=== PATIENT | female | born 1985 | race Caucasian/White ===

== ENCOUNTER 2016-12-02 14:38 | Inpatient (IN) | payer OTHER ==
[~2016-12-02] VITALS: Ht 165.1 cm; Wt 72.7 kg
[2016-12-02 14:45] VITALS: BP 126/83
[2016-12-02] MEDS ORDERED: PREN1TAB60 PO (14:54)
[2016-12-02] MEDS: D5%-LACTATED RINGERS 1,000 ML IV SCH ×2 (15:23→23:23)
[2016-12-02] MEDS ORDERED: OXYTOCIN 30U/ 0.9% NaCL 500ML 500 ML IV ONE (15:23)
[2016-12-02] MEDS ORDERED: SODIUM CITRATE/CITRIC ACID 30 ML UDC PO PRN (15:30)
[2016-12-02] MEDS ORDERED: METOCLOPRAMIDE 5 MG/ML, 2ML IVPush PRN (15:30)
[2016-12-02] MEDS ORDERED: FENTANYL PF 100 MCG/2ML IVPush PRN (15:30)
[2016-12-02] MEDS ORDERED: FENTANYL PF 100 MCG/2ML IV PRN (15:30)
[2016-12-02] MEDS ORDERED: ONDANSETRON 2MG/ML, 2ML IVPush PRN (15:30)
[2016-12-02] MEDS ORDERED: OXYTOCIN 30U/ 0.9% NaCL 500ML 500 ML IV PRN (15:34)
[2016-12-02 15:52] LABS: HEMATOCRIT 40.8 % (34.6-47.8); HEMOGLOBIN 13.7 g/dL (11.7-16.4); WHITE BLOOD COUNT 9.7 x10^3/uL (3.4-10)
[2016-12-02] MEDS: LACTATED RINGERS 1,000 ML IV SCH ×2 (15:52→19:18)
[2016-12-02] MEDS ORDERED: NEWBORN KIT ONE (16:53)
[2016-12-02] MEDS ORDERED: OXYTOCIN 30U/ 0.9% NaCL 500ML 500 ML ONE ×2 (16:53→22:20)
[2016-12-02] MEDS ORDERED: BUPIVACAINE 0.25% ONE ×2 (19:47→19:51)
[2016-12-02] MEDS ORDERED: FENTANYL PF 100 MCG/2ML ONE (19:47)
[2016-12-02] MEDS ORDERED: FENTANYL/BUPIV./NS/PF 250 ML EPIDCONT ONE ×2 (19:48→19:51)
[2016-12-02] MEDS ORDERED: LIDOCAINE/PF 1.5%-EPI 1:200K, 30ML ONE (19:51)
[2016-12-02] MEDS ORDERED: SODIUM CITRATE/CITRIC ACID 30 ML UDC ONE (20:14)
[2016-12-02] MEDS ORDERED: LACTATED RINGERS 1,000 ML IV SCH (20:18)
[2016-12-02] MEDS ORDERED: FENTANYL/BUPIV./NS/PF 250 ML EPIDCONT SCH (20:18)
[2016-12-02] MEDS ORDERED: LACTATED RINGERS 1,000 ML IVBOLUS PRN (20:30)
[2016-12-02] MEDS ORDERED: SODIUM CITRATE/CITRIC ACID 30 ML UDC PO ONE (20:30)
[2016-12-02] MEDS ORDERED: IBUPROFEN 600 MG TABLET ONE (21:46)
[2016-12-02] MEDS: IBUPROFEN 600 MG TABLET PO PRN (21:50)
[2016-12-02] MEDS ORDERED: OXYcodone/APAP 5/325MG TABLET PO PRN ×2 (22:00)
[2016-12-02] MEDS ORDERED: ONDANSETRON 2MG/ML, 2ML IV PRN (22:00)
[2016-12-02] MEDS ORDERED: MISOPROSTOL 200 MCG TABLET PO PRN (22:00)
[2016-12-02] MEDS ORDERED: ACETAMINOPHEN 325 MG TABLET PO PRN (22:00)
[2016-12-02] MEDS: OXYTOCIN 30U/ 0.9% NaCL 500ML 500 ML IV SCH (22:23)
[2016-12-03 00:40] VITALS: BP 104/63
[2016-12-03] MEDS: IBUPROFEN 600 MG TABLET PO PRN ×4 (03:55→23:51)
[2016-12-03 03:58] VITALS: BP 116/72
[2016-12-03 06:30] LABS: HEMATOCRIT 31.2 % (34.6-47.8); HEMOGLOBIN 10.8 g/dL (11.7-16.4); WHITE BLOOD COUNT 12.6 x10^3/uL (3.4-10)
[2016-12-03] MEDS: OXYTOCIN 30U/ 0.9% NaCL 500ML 500 ML IV SCH ×2 (07:42→17:42)
[2016-12-03] MEDS: DOCUSATE 100 MG CAPSULE PO PRN (08:10)
[2016-12-03] MEDS: PRENATAL VIT/IRON/FA 1 EACH TABLET PO SCH (08:10)
[2016-12-03 08:31] VITALS: BP 115/79
[2016-12-03 19:45] VITALS: BP 108/67
[2016-12-03] MEDS ORDERED: RHOGAM FROM BLOOD BANK 1 NOTE EA IM/IV ONE (23:00)
[2016-12-04] MEDS: OXYTOCIN 30U/ 0.9% NaCL 500ML 500 ML IV SCH ×2 (03:42→13:42)
[2016-12-04 08:55] VITALS: BP 104/65
[2016-12-04] MEDS: DOCUSATE 100 MG CAPSULE PO PRN (08:55)
[2016-12-04] MEDS: PRENATAL VIT/IRON/FA 1 EACH TABLET PO SCH (08:55)
[2016-12-04] MEDS: IBUPROFEN 600 MG TABLET PO PRN (08:55)
[2016-12-04] MEDS ORDERED: IBUP-1222 PO (12:48)
== END 2016-12-04 14:46 | disposition home or self-care (01) | DRG 775 ==
LOC: LDOP 14:38 → LDIP 15:35 → 2NW 12-03 00:05
PROVIDERS: ADMIT Obstetrics & Gynecology; ATTEND Obstetrics & Gynecology
PROC: 10E0XZZ Delivery of Products of Conception, External Approach (ICD-10-PCS; principal; 2016-12-02)
PROC: 30233S1 Transfusion of Nonautologous Globulin into Peripheral Vein, Percutaneous Approach (ICD-10-PCS; 2016-12-02)
PROC: 3E0S3CZ (ICD-10-PCS; 2016-12-02)
PROC: 00HU33Z Insertion of Infusion Device into Spinal Canal, Percutaneous Approach (ICD-10-PCS; 2016-12-02)
DX: O80 Encounter for full-term uncomplicated delivery (principal); Z37.0 Single live birth; Z3A.37 37 weeks gestation of pregnancy
CPT/HCPCS: 36415; 85025; 85461; 86850; 86900; J2790; J3490; J2590; J3010; J7120

== ENCOUNTER 2017-02-24 09:41 | Inpatient (IN) | payer OTHER ==
[~2017-02-24] VITALS: Ht 165.1 cm; Wt 77.4 kg
[~2017-02-24 09:41] MED LIST: IBUP-1222 PO; PREN1TAB60 PO
[2017-02-24 10:52] LABS: HEMATOCRIT 46.1 % (34.6-47.8); HEMOGLOBIN 15.6 g/dL (11.7-16.4); WHITE BLOOD COUNT 16.5 x10^3/uL (3.4-10)
[2017-02-24 11:03] LABS: BLOOD UREA NITROGEN 11 mg/dL (7-18)
[2017-02-24 11:07] LABS: ASPARTATE AMINO TRANSFERASE 18 U/L (15-37)
[2017-02-24 11:10] LABS: DIFF TOTAL CELLS COUNTED 100 CELL DIFF
[2017-02-24 11:12] LABS: VERIFY COUNTS? YES
[2017-02-24] MEDS ORDERED: NORE0.3522 PO (11:26)
[2017-02-24] MEDS ORDERED: LACT1CAP44 PO (11:26)
[2017-02-24] MEDS ORDERED: SODIUM CHLORIDE FLUSH 10ML SYR IVF ONE (12:30)
[2017-02-24] MEDS ORDERED: SODIUM CHLORIDE 0.9% 1,000ML IVBOLUS ONE (12:30)
[2017-02-24] MEDS ORDERED: metroNIDAZOLE 500 MG TABLET PO ONE (12:30)
[2017-02-24] MEDS ORDERED: ONDANSETRON 2MG/ML, 2ML IVPush ONE (12:30)
[2017-02-24] MEDS ORDERED: metroNIDAZOLE 500 MG TABLET ONE (12:39)
[2017-02-24] MEDS ORDERED: morphine SULFATE 10 MG/ML, 1ML ONE ×2 (13:02→14:42)
[2017-02-24] MEDS ORDERED: ONDANSETRON 2MG/ML, 2ML ONE (13:02)
[2017-02-24] MEDS: MORPHINE SULFATE 4 MG/ML, 1ML IVPush PRN ×2 (13:04→14:43)
[2017-02-24] MEDS ORDERED: SODIUM CHLORIDE 0.9%, 500ML IVBOLUS ONE (13:30)
[2017-02-24] MEDS ORDERED: OMNIPAQUE 350 MG/ML, 100ML BOTTLE ONE (15:18)
[2017-02-24] MEDS ORDERED: TIGECYCLINE 100 MG in DEXTROSE 5% 100 ML IV ONE (16:30)
[2017-02-24] MEDS ORDERED: hydrALAzine 20 MG/ML, 1ML IVPush PRN (18:00)
[2017-02-24] MEDS: morphine SULFATE 10 MG/ML, 1ML IVPush PRN (18:12)
[2017-02-24] MEDS: D5%-0.9% NACL+KCL 20MEQ 1,000 ML IV SCH (18:46)
[2017-02-24 19:21] VITALS: BP 111/68
[2017-02-24] MEDS: OXYcodone IR 5MG TABLET PO PRN (21:20)
[2017-02-24] MEDS: ACETAMINOPHEN 325 MG TABLET PO PRN (21:20)
[2017-02-24] MEDS: metroNIDAZOLE 500 MG TABLET PO SCH (21:20)
[2017-02-24] MEDS: ONDANSETRON 2MG/ML, 2ML IVPush PRN (21:20)
[2017-02-25] MEDS: morphine SULFATE 10 MG/ML, 1ML IVPush PRN ×2 (01:01→09:31)
[2017-02-25] MEDS: OXYcodone IR 5MG TABLET PO PRN ×3 (01:59→19:45)
[2017-02-25] MEDS: D5%-0.9% NACL+KCL 20MEQ 1,000 ML IV SCH ×3 (02:35→22:22)
[2017-02-25 03:39] VITALS: BP 106/66
[2017-02-25] MEDS: ACETAMINOPHEN 325 MG TABLET PO PRN (03:42)
[2017-02-25 04:22] LABS: PATH.CAST-FLAG NOT PRESENT; SPERM-FLAG NOT PRESENT; SRC-FLAG NOT PRESENT; XTAL-FLAG NOT PRESENT; YLC-FLAG NOT PRESENT
[2017-02-25] MEDS: metroNIDAZOLE 500 MG TABLET PO SCH (05:18)
[2017-02-25] MEDS: TIGECYCLINE 50 MG in DEXTROSE 5% 100 ML IV SCH ×2 (05:18→18:18)
[2017-02-25] MEDS: ONDANSETRON 2MG/ML, 2ML IVPush PRN (05:19)
[2017-02-25 05:55] LABS: HEMATOCRIT 39.9 % (34.6-47.8); HEMOGLOBIN 13.5 g/dL (11.7-16.4); WHITE BLOOD COUNT 19.7 x10^3/uL (3.4-10)
[2017-02-25 06:15] LABS: ASPARTATE AMINO TRANSFERASE 10 U/L (15-37); BLOOD UREA NITROGEN 11 mg/dL (7-18)
[2017-02-25] MEDS: METRONIDAZOLE PMX 500MG/100ML 100 ML IV SCH ×3 (09:31→23:56)
[2017-02-25] MEDS: VANCOMYCIN 50 MG/ML ORAL SUSP PO SCH ×3 (09:31→19:45)
[2017-02-25] MEDS ORDERED: PROMETHAZINE 25 MG/ML, 1ML IM PRN (10:00)
[2017-02-25 11:50] VITALS: BP 109/71
[2017-02-25 14:39] VITALS: BP 103/70
[2017-02-25 19:10] VITALS: BP 103/67
[2017-02-26] MEDS: VANCOMYCIN 50 MG/ML ORAL SUSP PO SCH ×4 (02:20→21:22)
[2017-02-26] MEDS: OXYcodone IR 5MG TABLET PO PRN ×2 (04:50→12:38)
[2017-02-26] MEDS: TIGECYCLINE 50 MG in DEXTROSE 5% 100 ML IV SCH ×2 (04:52→23:49)
[2017-02-26 04:53] VITALS: BP 101/67
[2017-02-26] MEDS: ONDANSETRON 2MG/ML, 2ML IVPush PRN ×2 (05:43→12:39)
[2017-02-26 07:14] VITALS: BP 93/61
[2017-02-26 07:16] LABS: HEMATOCRIT 38.6 % (34.6-47.8); HEMOGLOBIN 12.8 g/dL (11.7-16.4); WHITE BLOOD COUNT 20.5 x10^3/uL (3.4-10)
[2017-02-26 07:37] LABS: BLOOD UREA NITROGEN 11 mg/dL (7-18)
[2017-02-26] MEDS: METRONIDAZOLE PMX 500MG/100ML 100 ML IV SCH ×2 (07:48→21:22)
[2017-02-26 08:21] LABS: DIFF TOTAL CELLS COUNTED 100 CELL DIFF
[2017-02-26 08:23] LABS: VERIFY COUNTS? YES
[2017-02-26] MEDS: D5%-0.9% NACL+KCL 20MEQ 1,000 ML IV SCH (09:19)
[2017-02-26] MEDS ORDERED: MAGNESIUM SULFATE PMX 2GM/50ML 50 ML IV ONE (09:30)
[2017-02-26] MEDS ORDERED: POTASSIUM PHOSPHATE 22 MEQ in SODIUM CHLORIDE 0.9% 500 ML IV ONE (09:30)
[2017-02-26 17:42] VITALS: BP 105/58
[2017-02-26 19:58] VITALS: BP 109/62
[2017-02-26] MEDS: morphine SULFATE 10 MG/ML, 1ML IVPush PRN (20:01)
[2017-02-27 01:26] VITALS: BP 100/68
[2017-02-27] MEDS: VANCOMYCIN 50 MG/ML ORAL SUSP PO SCH ×4 (02:39→22:46)
[2017-02-27] MEDS: METRONIDAZOLE PMX 500MG/100ML 100 ML IV SCH (05:14)
[2017-02-27 06:02] LABS: HEMATOCRIT 36.9 % (34.6-47.8); HEMOGLOBIN 12.4 g/dL (11.7-16.4); WHITE BLOOD COUNT 11.9 x10^3/uL (3.4-10)
[2017-02-27 06:12] LABS: BLOOD UREA NITROGEN 13 mg/dL (7-18)
[2017-02-27 06:15] LABS: ASPARTATE AMINO TRANSFERASE 10 U/L (15-37)
[2017-02-27 07:21] VITALS: BP 101/66
[2017-02-27] MEDS: D5%-0.9% NACL+KCL 20MEQ 1,000 ML IV SCH ×2 (07:43→17:38)
[2017-02-27] MEDS: TIGECYCLINE 50 MG in DEXTROSE 5% 100 ML IV SCH ×2 (12:14→22:46)
[2017-02-27 14:30] VITALS: BP 101/71
[2017-02-27] MEDS: ONDANSETRON 2MG/ML, 2ML IVPush PRN ×2 (15:53→22:46)
[2017-02-27] MEDS: OXYcodone IR 5MG TABLET PO PRN (17:39)
[2017-02-27 20:00] VITALS: BP 110/75
[2017-02-28 02:30] VITALS: BP 105/74
[2017-02-28] MEDS: VANCOMYCIN 50 MG/ML ORAL SUSP PO SCH ×4 (03:42→22:00)
[2017-02-28] MEDS: D5%-0.9% NACL+KCL 20MEQ 1,000 ML IV SCH ×3 (03:42→22:00)
[2017-02-28] MEDS: OXYcodone IR 5MG TABLET PO PRN ×4 (04:05→20:59)
[2017-02-28 06:00] LABS: HEMATOCRIT 36.1 % (34.6-47.8); HEMOGLOBIN 12.3 g/dL (11.7-16.4); WHITE BLOOD COUNT 7.9 x10^3/uL (3.4-10)
[2017-02-28 06:07] LABS: BLOOD UREA NITROGEN 14 mg/dL (7-18)
[2017-02-28 08:24] VITALS: BP 122/89
[2017-02-28] MEDS: TIGECYCLINE 50 MG in DEXTROSE 5% 100 ML IV SCH ×2 (10:25→22:00)
[2017-02-28 14:30] VITALS: BP 106/67
[2017-02-28 19:06] VITALS: BP 104/79
[2017-02-28] MEDS: LACTOBACILLUS CHEW TABLET PO SCH ×2 (20:59→21:00)
[2017-03-01 01:39] VITALS: BP 114/77
[2017-03-01] MEDS: VANCOMYCIN 50 MG/ML ORAL SUSP PO SCH ×4 (06:50→22:09)
[2017-03-01] MEDS: LACTOBACILLUS CHEW TABLET PO SCH ×3 (10:26→22:09)
[2017-03-01] MEDS: D5%-0.9% NACL+KCL 20MEQ 1,000 ML IV SCH ×2 (10:26→17:04)
[2017-03-01] MEDS: TIGECYCLINE 50 MG in DEXTROSE 5% 100 ML IV SCH (12:25)
[2017-03-01 16:02] VITALS: BP 102/70
[2017-03-01 20:32] VITALS: BP 106/72
[2017-03-02] MEDS: TIGECYCLINE 50 MG in DEXTROSE 5% 100 ML IV SCH ×3 (00:47→23:58)
[2017-03-02 03:00] VITALS: BP 101/67
[2017-03-02] MEDS: VANCOMYCIN 50 MG/ML ORAL SUSP PO SCH ×4 (04:15→21:28)
[2017-03-02 06:01] LABS: HEMATOCRIT 40.3 % (34.6-47.8); HEMOGLOBIN 13.6 g/dL (11.7-16.4); WHITE BLOOD COUNT 6.7 x10^3/uL (3.4-10)
[2017-03-02 06:08] LABS: BLOOD UREA NITROGEN 13 mg/dL (7-18)
[2017-03-02 08:25] VITALS: BP 108/58
[2017-03-02] MEDS: LACTOBACILLUS CHEW TABLET PO SCH ×3 (09:12→21:27)
[2017-03-02 14:56] VITALS: BP 108/73
[2017-03-02 19:17] VITALS: BP 110/74
[2017-03-03 02:18] VITALS: BP 95/62
[2017-03-03] MEDS: VANCOMYCIN 50 MG/ML ORAL SUSP PO SCH ×2 (05:48→09:25)
[2017-03-03 07:52] VITALS: BP 109/67
[2017-03-03] MEDS: LACTOBACILLUS CHEW TABLET PO SCH (09:25)
[2017-03-03] MEDS ORDERED: VANC1VIA3 PO (12:00)
[2017-03-03] MEDS ORDERED: OXYC5TAB3 PO (12:00)
[2017-03-03] MEDS ORDERED: ACID1TAB7 PO (12:00)
[2017-03-03] MEDS: TIGECYCLINE 50 MG in DEXTROSE 5% 100 ML IV SCH (12:52)
== END 2017-03-03 16:06 | disposition home or self-care (01) | DRG 871 ==
LOC: ED 14:47 → EDIP 14:48 → ED 14:55 → 4WST 17:42
PROVIDERS: ADMIT Internal Medicine; ATTEND Internal Medicine
DX: A41.9 Sepsis, unspecified organism (principal); N17.0 Acute kidney failure with tubular necrosis; A04.72 Enterocolitis due to Clostridium difficile, not specified as recurrent; E44.0 Moderate protein-calorie malnutrition; K50.90 Crohn's disease, unspecified, without complications; K37 Unspecified appendicitis; N61.0 Mastitis without abscess; Z68.28 Body mass index [BMI] 28.0-28.9, adult
CPT/HCPCS: 36415; 74000; 74177; 80048; 80053; 80061; 81001; 83036; 83605; 83735; 84100; 84439; 84443; 85025; 85651; 86140; 87040; 87046; 87086; 87899; 89055; 96361; 96365; 96375; 96376; J2405; J2550; J3243; J3370; Q9967; J2270; J3475; J3480; J7030; J7040